=== PATIENT | male | born 1960 | race Caucasian/White ===

== ENCOUNTER → 2017-08-22 | Outpatient (CLI) | payer BC ==
[~2017-08-22] MED LIST: NS 100 ML IV 0 ML IV ONE
[2017-08-22 13:18] LABS: CREATININE 1.9 mg/dL (0.70-1.30)
--- NOTE | 2017-08-22 14:47 | CT ---
CT abdomen and pelvis without contrast Indication: Hematuria Comparison: None Technique: CT images of the abdomen and pelvis were obtained without contrast. Automatic exposure con trol was utilized. Findings: There are multiple noncalcified bilateral lower lobe pulmonary nodules, measuring up to 2.2 x 2.1 cm in the right middle lobe (image 12, series 3). No destructive osseous lesion identified on bone windo ws. Evaluation of the abdominal pelvic viscera is limited without contrast. There is large heterogeneous right renal mass measuring 16.3 x 9.5 cm in maximum axial dimension (axial image 40) and 17.4 cm in craniocaudal span. There are some coarse calcifications scattered throughout this mass, areas of cent ral hypoattenuation are suggestive for necrosis. Several prominent perirenal vessels are noted. No gr oss invasion of the adjacent structures by this mass or obvious IVC invasion, within noncontrast limi tations. The liver, gallbladder, spleen, stomach, duodenum, pancreas, adrenals, and left kidney demonstrate no significant abnormality. No significant thickening or dilatation of the lower GI tract is identified . The prostate is mildly enlarged. The urinary bladder and rectum are unremarkable. Impression: 1. Heterogeneous right renal mass measuring 16.3 x 9.5 x 17.4 cm is renal cell carcinoma, until prove n otherwise. 2. Multiple bilateral pulmonary metastases. 3. Mild prostate enlargement and other findings as above. Reported By:
== END | disposition home or self-care (01) | DRG 696 ==
LOC: RAD 12:50
PROVIDERS: ATTEND Obstetrics & Gynecology Obstetrics
DX: R31.9 Hematuria, unspecified (principal); N28.89 Other specified disorders of kidney and ureter; R91.8 Other nonspecific abnormal finding of lung field; N40.0 Benign prostatic hyperplasia without lower urinary tract symptoms
CPT/HCPCS: 36415; 74176; 82565; 84520